=== PATIENT | female | born 1930 | race Caucasian/White ===

== ENCOUNTER 2017-05-13 07:14 | Observation (INO) ==
[2017-05-13] MEDS ORDERED: Ondansetron 4 MG/2 ML VIAL IVP ONE ×3 (07:35→15:51)
[2017-05-13] MEDS ORDERED: *HR* FentaNYL (PF) 100 MCG/2 ML VIAL IVP ONE ×2 (07:35→08:54)
--- NOTE | 2017-05-13 07:35 | Emergency Department Note ---
Disposition Clinical Impression: Cholelithiasis Qualifiers: Cholelithiasis location: gallbladder and bile duct Cholecystitis presence: without cholecystitis Biliary obstruction: without biliary obstruction Qualified Code(s): K80.70 - Calculus of gallbladder and bile duct without cholecystitis without obstruction Nausea & vomiting Qualifiers: Vomiting type: unspecified Vomiting Intractability: unspecified Qualified Code( s): R11.2 - Nausea with vomiting, unspecified Disposition: Admitted As Inpatient Condition: Fair Referrals: Celestino Phipps MD [Primary Care Provider] - Forms: ED Satisfaction Letter, Work/School Release Time of Disposition: 09:04 Abdominal Pain HPI - General Chief Complaint: ED Abdominal Pain Stated Complaint: back/abd pain Time Seen by Provider: 05/13/17 07:19 Source: patient Mode of arrival: ambulatory Limitations: no limitations Nursing Notes Reviewed: Yes Vital Signs Reviewed: Yes - History of Present Illness HPI Narrative: 86-year-old female who comes in complaining of generalized abdominal pain. Says she had about 15 years ago and does not remember exactly what caused it. Says she had a history of A. fib but does not think she is in A. fib now. She is not on a blood thinner. She did have a CT scan of her abdomen in 2016 to did show gallstone also showed diverticular disease no mention of any vascular issues. Pt Subjective Complaint: abdominal pain Onset (ago): Just SE[employer] Consistency: constant Location: diffuse Pain Scale: 9 Quality: aching Radiation: none Migration to: no migration Improves with: nothing Worsens with: movement Associated symptoms: Reports: denies other symptoms Treatments prior to arrival: none - Related Data Home Medications Medication Instructions Recorded Confirmed Ergocalciferol (VITAMIN D2) 50,000 unit PO TAYLOR 02/19/17 02/19/17 [Vitamin D2] Ferrous Gluconate [Ferrous 325 mg PO Q48H 02/19/17 02/19/17 Gluconate] Labetalol HCl [Labetalol HCl] 300 mg PO BID 02/19/17 02/19/17 Ropinirole HCl [Requip] 2 mg PO BID 02/19/17 02/19/17 Verapamil [Isoptin] 120 mg PO BID 02/19/17 02/19/17 Previous Rx's Medication Instructions Recorded HYDROcodone/Acet 5/325 mg [[place] 1 tab PO Q6H PRN #16 tab 02/19/17 5-325 mg] Ondansetron ODT [Zofran ODT] 4 mg SL Q8HR PRN #20 tab.rapdis 02/19/17 Allergies Allergy/AdvReac Type Severity Reaction Status Date / Time ciprofloxacin [From Cipro] Allergy Rash Verified 02/19/17 07:58 Penicillins Allergy Rash Verified 02/19/17 07:58 All systems ED: reviewed and negative except as stated. Constitutional: Denies: fever, chills, weakness, weight change Eyes: Denies: eye pain, eye discharge, vision change ENT ED: Denies: ear pain, throat pain, dental pain, hearing loss, epistaxis, congestion, dysphagia Cardiovascular: Denies: chest pain, palpitations, dyspnea on exertion, edema, syncope Respiratory: Denies: cough, dyspnea, wheezes, hemoptysis, stridor Gastrointestinal: Reports: abdominal pain. Denies: nausea, vomiting, diarrhea, constipation, hematemesis, melena, hematochezia Genitourinary: Denies: dysuria, frequency, hematuria, discharge Musculoskeletal: Denies: back pain, neck pain, arthralgia, myalgia Integumentary: Denies: rash, abrasion, lesions Neurological: Denies: headache, weakness, numbness, paresthesias, confusion, abnormal gait, vertigo Psychiatric: Denies: anxiety, depression, suicidal thoughts, homicidal thoughts , auditory hallucinations, visual hallucinations Endocrine: Denies: fatigue Hematological/Lymphatic: Denies: easy bleeding, easy bruising Allergic/Immunologic: Denies: facial swelling, urticaria Abdominal Pain PMH - Past Medical History Medical history: Reports: arthritis, hyperlipidemia, hypertension, renal disease Female Surgical History: Reports: appendectomy, hip replacement, knee replacement, orthopedic, other Psychiatric history: Reports: no psych history - Social History Smoking status: Former smoker Alcohol use: Reports: occasionally Drug use: Reports: none Physical Exam - General Limitations: no limitations General appearance: alert, in no apparent distress - Head Head exam: atraumatic, normocephalic, normal inspection - Eye Eye exam: Present: normal appearance, PERRL, EOMI - ENT ENT exam: normal exam, normal oropharynx, mucous membranes moist - Neck Neck exam: Present: normal inspection, full ROM, trachea midline - Chest Chest inspection: Present: normal inspection, symmetric chest wall rise - Respiratory Respiratory exam: Present: normal lung sounds bilaterally - Cardiovascular Cardiovascular exam: Present: regular rate, normal rhythm, normal heart sounds - Abdominal Exam Abdominal exam: Present: soft, tenderness, Rees's sign Abdominal tenderness: Present: RUQ - Extremities Exam Extremities exam: Present: normal inspection, full ROM. Absent: tenderness, pedal edema - Expanded Lower Extremity Exam Neurovascular/Tendon exam: Absent: motor deficit, sensory deficit, tendon deficit Gait: observed and normal - Back Exam Back exam: Present: normal inspection, full ROM. Absent: tenderness - Neurological Exam Neurological exam: Present: alert, oriented X3 - Psychiatric Psychiatric exam: Present: normal affect, normal mood - Skin Skin exam: Present: warm, dry, intact, normal color Course - Reevaluation(s) Reevaluation #1: 86-year-old with the abdominal pain localizes right upper quadrant CT scan shows a gall stone impacted in the neck of the gallbladder. Patient continues to have vomiting and pain will be admitted for further evaluation and treatment. Time: 09:03 - Consultations Consultation #1: Discussed with , admit. Time: 09:02 Vital Signs Temperature 97.5 F L 05/13/17 07:16 Pulse Rate 55 05/13/17 07:16 Respiratory Rate 18 05/13/17 07:16 Blood Pressure 168/91 05/13/17 07:16 O2 Sat by Pulse Oximetry 99 05/13/17 07:16 Temperature 97.5 F L 05/13/17 07:16 Pulse Rate 56 05/13/17 08:51 Respiratory Rate 13 05/13/17 08:51 Blood Pressure 184/93 05/13/17 08:51 O2 Sat by Pulse Oximetry 98 05/13/17 08:51 Oxygen Delivery Oxygen Delivery Room Air Abdominal Pain - Lab Data Result diagrams: 05/13/17 07:24 05/13/17 07:24 Lab Results 05/13/17 05/13/17 05/13/17 Range/Units 07:24 07:24 07:24 WBC 8.7 (4.3-11.1) K/mcL RBC 4.22 (3.82-4.97) M/mcL Hgb 12.3 (11.5-15.4) g/dL Hct 38.5 (35.3-44.9) % MCV 91.2 (83.0-100.0) fL MCH 29.1 (28.0-33.3) pg MCHC 31.9 (31.6-35.5) g/dL RDW 13.7 (11.5-14.5) % Plt Count 186 (140-400) K/mcL MPV 11.1 (9.4-12.4) fL Immature Gran % 0.3 (0-4) % Seg Neutrophils % 74.6 % Lymphocytes % 14.9 % Monocytes % 6.6 % Eosinophils % 2.6 % Basophils % 1.0 % Neutrophils # 6.5 (1.6-8.9) K/mcL Lymphocytes # 1.3 (0.6-4.6) K/mcL Monocytes # 0.6 (0.0-1.3) K/mcL Eosinophils # 0.2 (0.0-0.6) K/mcL Basophils # 0.1 (0.0-0.2) K/mcL PT 10.6 (9.4-12.1) Seconds INR 1.0 APTT 22.6 L (26.0-36.0) Seconds Sodium 134 L (136-145) mEq/L Potassium 4.4 (3.5-5.1) mEq/L Chloride 101 (98-107) mEq/L Carbon Dioxide 26 (23-29) mEq/L BUN 22 (8-23) mg/dL Creatinine 1.35 H (0.60-1.20) mg/dL Est GFR ( Amer) 45 L (> 60) Est GFR (Non-Af Amer) 37 L (> 60) BUN/Creatinine Ratio 16 (6-26) Glucose 155 H (70-105) mg/dL Calculated Osmolality 284 (280-300) Lactic Acid (0.5-2.2) mmol/L Calcium 10.0 (8.6-10.3) mg/dL Total Bilirubin 0.4 (0.3-1.0) mg/dL Direct Bilirubin 0.1 (0.0-0.2) mg/dL Indirect Bilirubin 0.3 (0.0-1.2) mg/dL AST 17 (13-39) Units/L ALT 16 (7-52) Units/L Alkaline Phosphatase 73 (34-104) Units/L Troponin I < 0.03 (< 0.04) ng/mL Serum Total Protein 7.1 (6.4-8.9) g/dL Albumin 4.5 (3.5-5.7) g/dL Globulin 2.6 (2.4-3.5) g/dL Albumin/Globulin Ratio 1.7 (1.1-2.2) Amylase 24 L (29-103) Units/L Lipase 9 L (11-82) Units/L Urine Color (Yellow) Urine Clarity (Clear) Urine pH (5.0-8.0) pH Units Ur Specific [place] (1.010-1.025) Urine Protein (Neg-Trace) mg/dL Urine Glucose (UA) (Normal) mg/dL Urine Ketones (Negative) mg/dL Urine Blood (Negative) Urine Nitrite (Negative) Urine Bilirubin (Negative) Urine Urobilinogen (Normal) mg/dL Ur Leukocyte Esterase (Negative) Ur Culture Indicated? (NO) 05/13/17 05/13/17 Range/Units 07:33 07:41 WBC (4.3-11.1) K/mcL RBC (3.82-4.97) M/mcL Hgb (11.5-15.4) g/dL Hct (35.3-44.9) % MCV (83.0-100.0) fL MCH (28.0-33.3) pg MCHC (31.6-35.5) g/dL RDW (11.5-14.5) % Plt Count (140-400) K/mcL MPV (9.4-12.4) fL Immature Gran % (0-4) % Seg Neutrophils % % Lymphocytes % % Monocytes % % Eosinophils % % Basophils % % Neutrophils # (1.6-8.9) K/mcL Lymphocytes # (0.6-4.6) K/mcL Monocytes # (0.0-1.3) K/mcL Eosinophils # (0.0-0.6) K/mcL Basophils # (0.0-0.2) K/mcL PT (9.4-12.1) Seconds INR APTT (26.0-36.0) Seconds Sodium (136-145) mEq/L Potassium (3.5-5.1) mEq/L Chloride (98-107) mEq/L Carbon Dioxide (23-29) mEq/L BUN (8-23) mg/dL Creatinine (0.60-1.20) mg/dL Est GFR ( Amer) (> 60) Est GFR (Non-Af Amer) (> 60) BUN/Creatinine Ratio (6-26) Glucose (70-105) mg/dL Calculated Osmolality (280-300) Lactic Acid 1.2 (0.5-2.2) mmol/L Calcium (8.6-10.3) mg/dL Total Bilirubin (0.3-1.0) mg/dL Direct Bilirubin (0.0-0.2) mg/dL Indirect Bilirubin (0.0-1.2) mg/dL AST (13-39) Units/L ALT (7-52) Units/L Alkaline Phosphatase (34-104) Units/L Troponin I (< 0.04) ng/mL Serum Total Protein (6.4-8.9) g/dL Albumin (3.5-5.7) g/dL Globulin (2.4-3.5) g/dL Albumin/Globulin Ratio (1.1-2.2) Amylase (29-103) Units/L Lipase (11-82) Units/L Urine Color Yellow (Yellow) Urine Clarity Clear (Clear) Urine pH 7.5 (5.0-8.0) pH Units Ur Specific [place] 1.017 (1.010-1.025) Urine Protein Negative (Neg-Trace) mg/dL Urine Glucose (UA) Normal (Normal) mg/dL Urine Ketones Negative (Negative) mg/dL Urine Blood Negative (Negative) Urine Nitrite Negative (Negative) Urine Bilirubin Negative (Negative) Urine Urobilinogen Normal (Normal) mg/dL Ur Leukocyte Esterase Negative (Negative) Ur Culture Indicated? NO (NO) - EKG Data EKG attestation: Yes I reviewed and interpreted this EKG. EKG shows normal: sinus rhythm Rate: bradycardia Rhythm: NSR Interpretation: no acute changes
[2017-05-13 08:14] LABS: Troponin I < 0.03 ng/mL (< 0.04)
[2017-05-13 08:15] LABS: Prothrombin Time 10.6 Seconds (9.4-12.1)
[2017-05-13 08:17] LABS: Activated Partial Thrombo Time 22.6 Seconds (26.0-36.0)
[2017-05-13 08:18] LABS: Alanine Aminotransferase 16 Units/L (7-52); Albumin 4.5 g/dL (3.5-5.7); Albumin/Globulin Ratio 1.7 (1.1-2.2); Alkaline Phosphatase 73 Units/L (34-104); Amylase 24 Units/L (29-103); Aspartate Amino Transferase 17 Units/L (13-39); BUN/Creatinine Ratio 16 (6-26); Bilirubin,Direct 0.1 mg/dL (0.0-0.2); Bilirubin,Indirect 0.3 mg/dL (0.0-1.2); Bilirubin,Total 0.4 mg/dL (0.3-1.0); Blood Urea Nitrogen 22 mg/dL (8-23); Carbon Dioxide 26 mEq/L (23-29); Chloride 101 mEq/L (98-107); Globulin 2.6 g/dL (2.4-3.5); Glucose 155 mg/dL (70-105); Lipase 9 Units/L (11-82); Osmolality,Calculated 284 (280-300); Potassium 4.4 mEq/L (3.5-5.1); Sodium 134 mEq/L (136-145); Total Protein 7.1 g/dL (6.4-8.9); eGFR For African Americans 45 (> 60); eGFR For Non-African Americans 37 (> 60)
[2017-05-13 08:27] LABS: Basophils # 0.1 K/mcL (0.0-0.2); Eosinophils # 0.2 K/mcL (0.0-0.6); Eosinophils % 2.6 %; Hematocrit 38.5 % (35.3-44.9); Hemoglobin 12.3 g/dL (11.5-15.4); Immature Granulocytes % 0.3 % (0-4); Lymphocytes # 1.3 K/mcL (0.6-4.6); Lymphocytes % 14.9 %; Mean Corpuscular HGB Conc 31.9 g/dL (31.6-35.5); Mean Corpuscular Hemoglobin 29.1 pg (28.0-33.3); Mean Corpuscular Volume 91.2 fL (83.0-100.0); Mean Platelet Volume 11.1 fL (9.4-12.4); Monocytes # 0.6 K/mcL (0.0-1.3); Monocytes % 6.6 %; Neutrophils # 6.5 K/mcL (1.6-8.9); Platelet Count 186 K/mcL (140-400); Red Blood Count 4.22 M/mcL (3.82-4.97); Red Cell Distribution Width 13.7 % (11.5-14.5); Segmented Neutrophils % 74.6 %
[2017-05-13 08:46] LABS: Bilirubin,Urine Negative (Negative); Blood,Urine Negative (Negative); Clarity,Urine Clear (Clear); Color,Urine Yellow (Yellow); Glucose,Urine (UA) Normal (Normal); Ketones,Urine Negative (Negative); Leukocyte Esterase,Urine Negative (Negative); Nitrite,Urine Negative (Negative); PH,Urine 7.5 pH Units (5.0-8.0); Protein,Urine Negative (Neg-Trace); Specific Gravity,Urine 1.017 (1.010-1.025); Urobilinogen,Urine Normal (Normal)
[2017-05-13] MEDS ORDERED: Ondansetron 4 MG/2 ML VIAL IVP PRN ×2 (09:23→17:31)
[2017-05-13] MEDS ORDERED: *HR* Metoprolol 5 MG/5 ML VIAL IVP PRN ×2 (09:23→17:31)
[2017-05-13] MEDS ORDERED: Naloxone 0.4 MG/ML INJ IVP PRN ×2 (09:23→17:31)
[2017-05-13] MEDS ORDERED: Morphine Oral CONC 5 MG/0.25 ML ORAL.SYG PO PRN (09:30)
[2017-05-13] MEDS ORDERED: OXYCODONE Oral CONC 10 MG/0.5 ML ORAL.SYG SL PRN ×2 (09:30→17:31)
[2017-05-13] MEDS ORDERED: 0.9 % Sodium Chloride 1,000 ML IVC SCH (09:30)
[2017-05-13] MEDS ORDERED: Acetaminophen 325 MG TABLET PO PRN ×2 (09:30→17:31)
--- NOTE | 2017-05-13 10:47 | General Surg History&Physical ---
<Silverio Norris - Last Filed: 05/13/17 10:39> Date of Encounter: 05/13/17 Time of Encounter: 10:40 Assessment and Plan (1) Cholelithiasis Current Visit: Yes Status: Acute The assessment and plan as outlined above was discussed with the patient and/or family members who expressed understanding and agreement. All questions were answered. Labs are unremarkable with no leukocytosis and with normal LFTs. Elevated creatinine at 1.35, but appears to be at the patient's baseline. CT of abdomen and pelvis 05/13/17 and right upper quadrant ultrasound - shows distended gallbladder with a 6 mm gallstone in the gallbladder neck. No pericholecystic edema is present. No evidence of intrahepatic or common bile duct dilation. No acute cholecystitis at this time. Patient is afebrile and appears in no acute distress. Plan: NPO at this time IV zofran PRN for nausea and vomiting IVF supportive care and pain control. Surgical intervention within 24 to 48 hours. Patient will be an add on for laparoscopic cholecystectomy by Dr. Valero. Qualifiers: Cholelithiasis location: gallbladder and bile duct Cholecystitis presence: without cholecystitis Biliary obstruction: without biliary obstruction Qualified Code(s): K80.70 - Calculus of gallbladder and bile duct without cholecystitis without obstruction History of Present Illness Chief complaint: Abdominal pain HPI: Ms. Vu is a 86 year old female with a past medical history of CKD stage 3, afib not on any anticoagulation, and a history of gallstones in 2016 who presented to the emergency department complaining of epigastric and right upper quadrant pain that started at 5 AM this morning. The patient states that the pain occurred while she was asleep. She describes the pain as constant, sharp, and radiated to her back. She admits associated nausea and vomiting with the pain. She states that moving around makes the pain worse and nothing makes it better. Surgical history includes umbilical hernia repair approximately 10 years ago and appendectomy at the age of 15 y/o. Patient sates that her last bowel movement was this morning without any blood. The patient denies any fever , jaundice, changes in bowel movements, urinary symptoms, chest pain, shortness of breath, difficulty breathing, and any weaknesses. The patient has no other concerns at this time. Past Med Surg Social Fam HX - Past Medical History Medical history: arthritis, hyperlipidemia, hypertension, renal disease Psychiatric history: no psych history - Social History Smoking Status: Former smoker Smokeless Tobacco Status: No Alcohol use: occasionally Drug use: none Medications and Allergies Ergocalciferol (VITAMIN D2) [Vitamin D2] 50,000 unit PO TAYLOR 02/19/17 [History] Ferrous Gluconate [Ferrous Gluconate] 325 mg PO DAILY 02/19/17 [History] Labetalol HCl [Labetalol HCl] 300 mg PO BID 02/19/17 [History] Ropinirole HCl [Requip] 2 mg PO BID 02/19/17 [History] Verapamil [Isoptin] 120 mg PO BID 02/19/17 [History] 3 Allergy/AdvReac Type Severity Reaction Status Date / Time ciprofloxacin [From Cipro] Allergy Rash Verified 05/13/17 09:12 Penicillins Allergy Rash Verified 05/13/17 09:12 Review of Systems All systems PM: The remainder of the systems were reviewed and are negative - Constitutional as per HPI General Surgery Exam Initial Vital Signs Temp Pulse Resp BP Pulse Ox 97.5 F L 55 18 168/91 99 05/13/17 07:16 05/13/17 07:16 05/13/17 07:16 05/13/17 07:16 05/13/17 07:16 - General physical appearance well developed, well nourished, no distress, obese - Eyes PERRL, normal ocular movement - ENT normal mucosa - Neck trachea midline - Respiratory normal expansion, normal respiratory effort - Cardiovascular Cardiovascular exam: Present: RRR, no murmurs/rubs/gallops - Abdomen Abdomen general surgery: Present: bowel sounds present, soft, tender (Tender to palpation in the right upper quadrant and epigastric region. Positive Rees's sign. Negative Rovsing's sign. No tenderness at the McBurney's point), surgical scars (Well healed near her umbilicus, from previous hernia repair). Absent: guarding, rebound, rigid Abdominal Tenderness: Present: epigastic, RUQ Hernia: Present: none - Integumentary Integumentary general surgery: Present: warm and dry, no abnormal pigmentation - Neurologic Present: CN 2-12 grossly intact - Psychiatric Psychiatric general surgery: Present: appropriate, oriented to person, oriented to place, oriented to time Results - Labs 05/13/17 07:24 05/13/17 07:24 Abnormal lab results APTT 22.6 Seconds (26.0-36.0) L 05/13/17 07:24 Sodium 134 mEq/L (136-145) L 05/13/17 07:24 Creatinine 1.35 mg/dL (0.60-1.20) H 05/13/17 07:24 Est GFR ( Amer) 45 (> 60) L 05/13/17 07:24 Est GFR (Non-Af Amer) 37 (> 60) L 05/13/17 07:24 Glucose 155 mg/dL (70-105) H 05/13/17 07:24 Amylase 24 Units/L (29-103) L 05/13/17 07:24 Lipase 9 Units/L (11-82) L 05/13/17 07:24 All other labs normal. <Osei Valero - Last Filed: 05/13/17 13:07> Date of Encounter: 05/13/17 History of Present Illness HPI: Ms. Vu is a 86 year old female Review of Systems All systems PM: The remainder of the systems were reviewed and are negative General Surgery Exam Initial Vital Signs Temp Pulse Resp BP Pulse Ox 97.5 F L 55 18 168/91 99 05/13/17 07:16 05/13/17 07:16 05/13/17 07:16 05/13/17 07:16 05/13/17 07:16 Results - Labs 05/13/17 07:24 05/13/17 07:24 Abnormal lab results APTT 22.6 Seconds (26.0-36.0) L 05/13/17 07:24 Sodium 134 mEq/L (136-145) L 05/13/17 07:24 Creatinine 1.35 mg/dL (0.60-1.20) H 05/13/17 07:24 Est GFR ( Amer) 45 (> 60) L 05/13/17 07:24 Est GFR (Non-Af Amer) 37 (> 60) L 05/13/17 07:24 Glucose 155 mg/dL (70-105) H 05/13/17 07:24 Amylase 24 Units/L (29-103) L 05/13/17 07:24 Lipase 9 Units/L (11-82) L 05/13/17 07:24 All other labs normal. - Attending Attestation I examined this patient and my medical decision-making was reviewed with the Resident Physician. I agree with the documented findings, disposition and treatment plan as described except to the extent set forth below. The patient is seen and evaluated with the resident and discussed with the clinical nurse practitioner. Findings are consistent with cholelithiasis and gallbladder obstruction. She will benefit from laparoscopic cholecystectomy. We will schedule this on an urgent basis later today. I discussed the risks and benefits of laparoscopic cholecystectomy and the performance of cholangiogram. She understands this and wishes to proceed. Osei Valero MD FACS
[2017-05-13] MEDS ORDERED: Bisacodyl 10 MG RECTAL SUPPOSITORY RC PRN ×2 (12:22→17:31)
[2017-05-13] MEDS ORDERED: Isovue-300 50 ML VIAL IVP ONE (14:14)
[2017-05-13] MEDS ORDERED: *HR* Propofol 200 MG/20 ML VIAL IVP ONE (14:48)
[2017-05-13] MEDS ORDERED: *HR* FentaNYL (PF) 100 MCG/2 ML VIAL ONE (14:48)
[2017-05-13] MEDS ORDERED: Dexamethasone 4 MG/ML VIAL ONE (14:49)
[2017-05-13] MEDS ORDERED: *HR* Rocuronium Bromide 50 MG/5 ML VIAL ONE (14:49)
[2017-05-13] MEDS ORDERED: Ondansetron 4 MG/2 ML VIAL ONE (14:49)
[2017-05-13] MEDS ORDERED: Lidocaine -MPF 2% 2 ML VIAL ONE (14:49)
[2017-05-13] MEDS ORDERED: Neostigmine Methylsulfate 3 MG/3 ML SYRINGE ONE (14:52)
[2017-05-13] MEDS ORDERED: CefOXitin 2,000 MG VIAL ONE (14:59)
[2017-05-13] MEDS ORDERED: cefOXitin 1,000 MG, 0.9 % Sodium Chloride 1,000 ML IR ONE (15:00)
--- NOTE | 2017-05-13 15:00 | Anesthesia Evaluation PreOp ---
Date of Encounter: 05/13/17 Time of Encounter: 15:00 - Past History Planned Operation: Lap Cholecystectomy Cardiac History: HTN, Hyperlipidemia, Arrhythmia (Hx Paroxysmal AFib) Pulmonary History: VITALIY Dx (non compliant with CPAP) TRANSPORTATION INSPECTOR History: Denies Any Significant HX Other Medical History: Renal (CKD with elevated creatinine), Other (Obese) Anesthesia History: No Prior Anesthetic Complications : No Alcohol Use: occasionally Drug use: none Medications and Allergies Ergocalciferol (VITAMIN D2) [Vitamin D2] 50,000 unit PO TAYLOR 02/19/17 [History] Ferrous Gluconate [Ferrous Gluconate] 325 mg PO DAILY 02/19/17 [History] Labetalol HCl [Labetalol HCl] 300 mg PO BID 02/19/17 [History] Ropinirole HCl [Requip] 2 mg PO BID 02/19/17 [History] Verapamil [Isoptin] 120 mg PO BID 02/19/17 [History] 3 Allergy/AdvReac Type Severity Reaction Status Date / Time ciprofloxacin [From Cipro] Allergy Rash Verified 05/13/17 09:12 Penicillins Allergy Rash Verified 05/13/17 09:12 - Meds/Allergy Pre-op Review Medications Reviewed: Yes Allergies Reviewed: Yes Beta Blockers on Current Med List: Yes (Metoprolol today 09) Anesthesia Results - Labs 05/13/17 07:24 05/13/17 07:24 - Imaging EKG: report reviewed (SR) Anesthesia Exam O2 Sat Height 1.63 m Weight 102.058 kg O2 Sat by Pulse Oximetry 97 O2 Sat by Pulse Oximetry 94 O2 Sat by Pulse Oximetry 96 O2 Sat by Pulse Oximetry 98 O2 Sat by Pulse Oximetry 97 O2 Sat by Pulse Oximetry 99 Vital Signs Temp Pulse Resp BP Pulse Ox 97.5 F L 55 18 168/91 99 05/13/17 07:16 05/13/17 07:16 05/13/17 07:16 05/13/17 07:16 05/13/17 07:16 Height: 5'4 Weight: 225 lbs NPO (# of Hours): MN Pain Scale: 0 - HEENT Pupil (Motor): Pupils equal, EOMI Mallampati: III Teeth: Missing Oral Opening: Less than or equal to 3 - TRANSPORTATION INSPECTOR LOC: Oriented TRANSPORTATION INSPECTOR Motor: Normal RUE, Normal LUE, Normal RLE, Normal LLE, Normal Face TRANSPORTATION INSPECTOR Sensory: Normal: RUE, LUE, RLE, LLE, Face - Cardiac Rhythm: Regular Murmur: None JVD: No Carotid Bruit: No - Pulmonary Breath Sounds: bilateral Clear Respiratory Effort: Symmetrical Anesthesia Assess/Plan ASA Score: 3 (HTN VITALIY CKD) Modified [place] Scale for Level of Consciousness: Cooperative, oriented, and tranquil Anesthetic Plan: General Monitoring Plan: Standard Monitors Recovery Plan: PACU (Discussed GA, agrees to proceed)
[2017-05-13] MEDS ORDERED: Clindamycin 900 MG/50 ML 900 MG/50 ML IV.SOLN IVPB ONE (15:01)
[2017-05-13] MEDS ORDERED: Acetaminophen IV 1,000 MG/100 ML INFUS..BTL ONE (15:12)
[2017-05-13] MEDS ORDERED: *HR* Succinylcholine 200 MG/10 ML VIAL IVP ONE (15:20)
[2017-05-13] MEDS ORDERED: *HR* PHENYLEPHRINE 1,000 MCG/10 ML SYRINGE IVP ONE (15:45)
[2017-05-13] MEDS ORDERED: Dexamethasone 4 MG/ML VIAL IVP ONE (15:51)
[2017-05-13] MEDS ORDERED: *HR* Morphine 2 MG/ML SYRINGE IVP PRN (15:51)
[2017-05-13] MEDS ORDERED: *HR* Labetalol 20 MG/4 ML SYRINGE IVP PRN (15:51)
[2017-05-13] MEDS ORDERED: *HR* Morphine 10 MG/ML VIAL ONE (15:53)
[2017-05-13] MEDS ORDERED: cefOXitin 2,000 MG in Water for inj. (sterile) 20 ML 10 ML IVP SCH (16:00)
--- NOTE | 2017-05-13 16:20 | Operative Note ---
Date of procedure: 05/13/17 Pre-op diagnosis: Cholelithiasis Post-op diagnosis: other (Acute hemorrhagic gallbladder necrosis and cholelithiasis) Procedure: Laparoscopic cholecystectomy, cholangiogram Anesthesia: GETA Surgeon: Osei Valero Was there an mental health assistant present: Yes Branch Officer: Joanne England Estimated blood loss (cc): 20 Specimen: Gallbladder and contents Condition: stable Disposition: PACU Procedure in Detail: Laparoscopic cholecystectomy and intraoperative cholangiogram Operative procedure after informed consent and appropriate patient identification timeout the patient was taken to the major operating suite and placed supine position given adequate general endotracheal anesthesia the abdomen is prepped and draped in sterile fashion utilizing ChloraPrep standard draping techniques timeout was taken patient is identified. I made a vertical midline incision below the umbilicus dissected down to level of fascia there are 2 traction stitches placed in the abdominal cavity was entered visually. A Garcia trocar was placed in the abdomen and the abdomen was insufflated to 15 mmHg pressure CO2 the gallbladder was visualized. A placement 11 port in the subxiphoid area and 2 5 mm ports in the subcostal area. The gallbladder demonstrated acute hemorrhagic necrosis. The gallbladder was decompressed with a decompression needle. Quite clear bile was aspirated indicating chronic obstruction. The gallbladder was grasped and elevated. A variety of blunt and sharp dissection techniques were used to isolate the cystic duct and cystic artery. The cystic artery was controlled with 2 surgical clips proximally and one distally and it was divided I placed a surgical clip on the neck the gallbladder and obtained an intraoperative cholangiogram using 10 mL of Isovue. Intraoperative cholangiogram was normal. The cholangiocatheter was removed and the cystic duct was controlled with 2 surgical clips proximally and was divided the gallbladder was removed from the gallbladder fossae using electrocautery. The gallbladder was removed through the #11 port site using a specimen bag. I replaced the #11 port and irrigated with copious amounts of antibiotic containing solution. There is no evidence of bleeding or bile leak. All trochars were removed. Fascia was closed with 0 Vicryl skin with 2-0 and 4-0 Vicryl he tolerated the procedure well and was transferred to recovery in stable condition
--- NOTE | 2017-05-13 16:58 | Anesthesia Evaluation Post Op ---
Date of Encounter: 05/13/17 Time of Encounter: 17:00 - Vital Signs Vital Signs: Selected Entries 05/13/17 16:24 05/13/17 16:44 Temperature 97.0 F L Pulse Rate 65 Respiratory Rate 16 Blood Pressure 141/73 O2 Sat by Pulse Oximetry 99 - Lungs Lungs: Clear Ascult./Percussion - Airway Airway: Non-obstructed - Cardiovascular Regular Rate - Mental Status Mental Status: Alert & Oriented, Answers Appropriately - Nausea Vomiting Nausea Vomiting: Not Present - Hydration Hydration: Tolerates oral liquids - Discharge PostOp Status: Transfer Patient to floor
[2017-05-13] MEDS ORDERED: MORPHINE SUL Oral CONC 10 MG/0.5 ML ORAL.SYG PO PRN (17:31)
[2017-05-13] MEDS: rOPINIRole 1 MG TABLET PO SCH (21:40)
[2017-05-13] MEDS: cefOXitin 2,000 MG in Water for inj. (sterile) 20 ML 10 ML IVP SCH (23:22)
[2017-05-14 07:35] VITALS: BP 95/55
[2017-05-14] MEDS: 0.9 % Sodium Chloride 1,000 ML IVC SCH ×2 (07:52→09:34)
--- NOTE | 2017-05-14 08:02 | Electrocardiograph Report ---
[address] [place] [id number] Test Date: 2017-05-13 Pat Name: Shannon Vu Department: 103 Room: 3A41 Gender: F Manufacturing Industrial Engineer: HENOK : 1930 Requested By: Dutch Christine Order Number: [id number] Reading MD: Daniel Espinoza MD Measurements Intervals [place] Rate: 55 P: [place]: 0 QRS: 27 QRSD: 117 T: 52 QT: 485 QTc: 473 Interpretive Statements SINUS BRADYCARDIA INFERIOR MYOCARDIAL INFARCTION, PROBABLY OLD Electronically Signed On 05-14-2017 8:00:18 EDT by Daniel Espinoza MD
[2017-05-14] MEDS: rOPINIRole 1 MG TABLET PO SCH (08:30)
--- NOTE | 2017-05-14 08:42 | Discharge Summary ---
Addendum entered and electronically signed by Silverio Norris DO 05/14/17 10:08: Original Note: <Silverio Norris - Last Filed: 05/14/17 08:39> Orders not resulted at time of discharge: Pending orders 05/13/17 16:03 Surgical Pathology [PTH] Routine Date of Encounter: 05/14/17 Time of Encounter: 07:10 - Discharge Diagnosis (1) Status post laparoscopic cholecystectomy Priority: Primary Status: Acute (2) Cholelithiasis Priority: Primary Status: Acute Qualifiers: Cholelithiasis location: gallbladder and bile duct Cholecystitis presence: without cholecystitis Biliary obstruction: without biliary obstruction Qualified Code(s): K80.70 - Calculus of gallbladder and bile duct without cholecystitis without obstruction General Surgery Exam Initial Vital Signs Temp Pulse Resp BP Pulse Ox 97.5 F L 55 18 168/91 99 05/13/17 07:16 05/13/17 07:16 05/13/17 07:16 05/13/17 07:16 05/13/17 07:16 - General physical appearance well developed, well nourished, no distress - Eyes PERRL, normal ocular movement - ENT normal mucosa - Neck trachea midline - Respiratory normal expansion, normal respiratory effort, clear to auscultation - Cardiovascular Cardiovascular exam: Present: RRR, no murmurs/rubs/gallops - Abdomen Abdomen general surgery: Present: bowel sounds present, soft, tender (Mild tenderness near her surgical incisions. Expected and appropriate post operative tenderness.). Absent: distended, guarding, rebound - Incision Incision: Present: clean and dry, intact. Absent: draining, purulent - Integumentary Integumentary general surgery: Present: warm and dry, no abnormal pigmentation - Neurologic Present: CN 2-12 grossly intact - Psychiatric Psychiatric general surgery: Present: appropriate, oriented to person, oriented to place, oriented to time, speech is normal - Hospital Course Hospital course: Ms. Vu is a 86 year old female with a past medical history of CKD stage 3, afib not on any anticoagulation, and a history of gallstones in 2016 who presented to the emergency department complaining of epigastric and right upper quadrant pain that started at 5 AM this morning. The patient states that the pain occurred while she was asleep. She describes the pain as constant, sharp, and radiated to her back. She admits associated nausea and vomiting with the pain. She states that moving around makes the pain worse and nothing makes it better. Surgical history includes umbilical hernia repair approximately 10 years ago and appendectomy at the age of 15 y/o. Patient sates that her last bowel movement was the morning before arrival to ED and stools were without any blood. Patient had a laparoscopic cholecystectomy and intraoperative cholangiogram on 05/13/2017. Per operative note,patient had acute hemorrhagic gallbladder necrosis and cholelithiasis. Intraoperative cholangiogram was normal. Patient tolerated the surgery well. The patient denies any fever, jaundice, changes in bowel movements, urinary symptoms, chest pain, shortness of breath, difficulty breathing, and any weaknesses. The patient was instructed to follow up with her primary care physician within one week. The patient was also instructed to follow-up with the surgery outpatient clinic within 2 weeks. The patient has no other concerns at this time. - Time Spent with Patient Total time spent providing and/or coordinating discharge services: - Discharge Medications Prescriptions: OxyCODONE/APAP 10/325 [Percocet 10/325 MG] 1 each PO Q6HR PRN 6 Days #24 tablet PRN Reason: Pain Ibuprofen [Motrin] 600 mg PO Q8HR PRN #30 tab PRN Reason: Pain Docusate [Colace] 100 mg PO BID PRN #30 capsule PRN Reason: Constipation Home Medications: Ergocalciferol (VITAMIN D2) [Vitamin D2] 50,000 unit PO TAYLOR 02/19/17 [History] Ferrous Gluconate 325 mg PO DAILY 02/19/17 [History] Labetalol HCl 300 mg PO BID 02/19/17 [History] Ropinirole HCl [Requip] 2 mg PO BID 02/19/17 [History] Verapamil [Isoptin] 120 mg PO BID 02/19/17 [History] Docusate [Colace] 100 mg PO BID PRN #30 capsule 05/14/17 [Rx] Ibuprofen [Motrin] 600 mg PO Q8HR PRN #30 tab 05/14/17 [Rx] OxyCODONE/APAP 10/325 [Percocet 10/325 MG] 1 each PO Q6HR PRN 6 Days #24 tablet 05/14/17 [Rx] Allergies/Adverse Reactions: 3 Allergy/AdvReac Type Severity Reaction Status Date / Time ciprofloxacin [From Cipro] Allergy Rash Verified 05/13/17 09:12 Penicillins Allergy Rash Verified 05/13/17 09:12 Date of admission: 05/13/17 09:47 Primary care physician: Celestino Phipps MD Discharging clinician: Silverio Norris - Impressions ITS Impressions Cholangiogram,Operative 05/13/17 15:50 IMPRESSION: Unremarkable intraoperative cholangiogram. Reference can be made to procedure report for additional information. D/ / 05/13/2017 16:31:38 Jose Fuentes MD / Eula Ortega Interpreting Provider: Jose Fuentes MD - Patient Status Disposition: Home, Self-Care Condition: Fair Functional capacity at discharge: independent ambulation Overall status at discharge: patient is progressing back to baseline - Discharge Instructions Instructions: Laparoscopic Cholecystectomy (DC) Follow Up With: Dasha Shafer CNP [Advanced Practice Nurse] - 05/26/17 1:00 pm (Lap. alexandro by Dr. Valero F/U) Additional Instructions: 1. No pushing, pulling, or lifting greater than 15 lbs for 4 weeks (depending upon procedure). 2. You may shower beginning today, but no tub baths, soaking, or swimming for 2 weeks. 3. You may resume driving when you are off narcotics and are safe to react in a car. 4. Take ibuprofen every 8 hours for discomfort. If this does not relieve discomfort, you may take the as needed Percocet. Take narcotics as directed. Do not take more narcotics then directed and do not share your narcotics with any other person. Do not drink alcohol while on narcotics. 5. Take stool softeners (Colace) or a water based laxative (Miralax) while taking narcotics. You may hold for loose stools. 6. Report any fevers greater than 100.5F, increase abdominal discomfort, drainage that looks like pus, increased redness or pain at the surgical site, or any vomiting. 7. Report any pain in the calves, shortness of breath, or rapid heartbeat. 8. Follow-up in the office as directed. 9. If you were prescribed antibiotics, do not stop them without talking to your provider. - Diet and Activity Activity: increase activity as tolerated Diet: advance to your usual diet <Osei Valero - Last Filed: 05/20/17 15:39> Date of Encounter: 05/14/17 General Surgery Exam Initial Vital Signs Temp Pulse Resp BP Pulse Ox 97.5 F L 55 18 168/91 99 05/13/17 07:16 05/13/17 07:16 05/13/17 07:16 05/13/17 07:16 05/13/17 07:16 - Hospital Course Hospital course: Ms. Vu is a 86 year old female - Time Spent with Patient Total time spent providing and/or coordinating discharge services: Date of admission: 05/13/17 09:47 Primary care physician: Celestino Phipps MD - Impressions ITS Impressions Cholangiogram,Operative 05/13/17 15:50 IMPRESSION: Unremarkable intraoperative cholangiogram. Reference can be made to procedure report for additional information. D/ / 05/13/2017 16:31:38 Jose Fuentes MD / Eula Ortega Interpreting Provider: Jose Fuentes MD - Attending Attestation I examined this patient and my medical decision-making was reviewed with the Resident Physician. I agree with the documented findings, disposition and treatment plan as described except to the extent set forth below. The patient is seen and evaluated with rest. She underwent laparoscopic cholecystectomy and is stable and ready for discharge. Osei Valero MD FACS
[2017-05-14 08:55] LABS: Albumin 3.5 g/dL (3.5-5.7); Albumin/Globulin Ratio 1.6 (1.1-2.2); Bilirubin,Direct 0.2 mg/dL (0.0-0.2); Bilirubin,Indirect 0.4 mg/dL (0.0-1.2); Bilirubin,Total 0.6 mg/dL (0.3-1.0); Calcium 9.1 mg/dL (8.6-10.3); Globulin 2.2 g/dL (2.4-3.5); Potassium 4.7 mEq/L (3.5-5.1); Total Protein 5.7 g/dL (6.4-8.9)
[2017-05-14] MEDS ORDERED: *HR* Heparin 5,000 UNIT/ML VIAL SQ ONE ×2 (09:26)
[2017-05-14] MEDS: cefOXitin 2,000 MG in Water for inj. (sterile) 20 ML 10 ML IVP SCH (09:33)
[2017-05-14 09:49] LABS: Basophils % 0.1 %; Hematocrit 35.7 % (35.3-44.9); Hemoglobin 11.3 g/dL (11.5-15.4); Immature Granulocytes % 0.4 % (0-4); Lymphocytes # 0.7 K/mcL (0.6-4.6); Lymphocytes % 5.5 %; Mean Corpuscular HGB Conc 31.7 g/dL (31.6-35.5); Mean Corpuscular Hemoglobin 28.9 pg (28.0-33.3); Mean Corpuscular Volume 91.3 fL (83.0-100.0); Mean Platelet Volume 10.3 fL (9.4-12.4); Monocytes # 0.5 K/mcL (0.0-1.3); Monocytes % 4.1 %; Neutrophils # 11.5 K/mcL (1.6-8.9); Platelet Count 211 K/mcL (140-400); Red Blood Count 3.91 M/mcL (3.82-4.97); Red Cell Distribution Width 13.5 % (11.5-14.5); Segmented Neutrophils % 89.9 %
== END 2017-05-14 11:50 | disposition home or self-care (01) ==
LOC: 3ANU 07:14 → EMEROO 07:14 → 3ANU 11:02
PROVIDERS: ADMIT Surgery; ATTEND Surgery

== ENCOUNTER 2019-12-17 09:25 | Inpatient (IN) ==
[2019-12-17 09:59] LABS: Basophils # 0.1 K/mcL (0.0-0.2); Basophils % 1.5 %; Eosinophils # 0.2 K/mcL (0.0-0.6); Eosinophils % 3.2 %; Hematocrit 35.8 % (35.3-44.9); Hemoglobin 11.2 g/dL (11.5-15.4); Immature Granulocytes % 0.2 % (0-4); Lymphocytes # 0.8 K/mcL (0.6-4.6); Lymphocytes % 16.9 %; Mean Corpuscular HGB Conc 31.3 g/dL (31.6-35.5); Mean Corpuscular Hemoglobin 29.5 pg (28.0-33.3); Mean Corpuscular Volume 94.2 fL (83.0-100.0); Mean Platelet Volume 10.1 fL (9.4-12.4); Monocytes # 0.5 K/mcL (0.0-1.3); Monocytes % 10.6 %; Neutrophils # 3.2 K/mcL (1.6-8.9); Platelet Count 161 K/mcL (140-400); Red Cell Distribution Width 14.8 % (11.5-14.5); Segmented Neutrophils % 67.6 %; White Blood Count 4.7 K/mcL (4.3-11.1)
[2019-12-17 10:04] LABS: INR 1.1; Prothrombin Time 13.1 Seconds (9.4-12.1)
[2019-12-17 10:07] LABS: Activated Partial Thrombo Time 28.6 Seconds (26.0-36.0)
[2019-12-17] MEDS ORDERED: *HR* Metoprolol 5 MG/5 ML VIAL IVP ONE (10:17)
[2019-12-17 10:23] LABS: BUN/Creatinine Ratio 27 (6-26); Blood Urea Nitrogen 32 mg/dL (8-23); Calcium 9.5 mg/dL (8.6-10.3); Carbon Dioxide 26 mEq/L (23-29); Chloride 104 mEq/L (98-107); Glucose 102 mg/dL (70-105); Magnesium 1.9 mg/dL (1.6-2.6); Osmolality,Calculated 289 (280-300); Potassium 4.1 mEq/L (3.5-5.1); Sodium 136 mEq/L (136-145); Troponin I < 0.03 ng/mL (< 0.04); eGFR For African Americans 52 (> 60); eGFR For Non-African Americans 43 (> 60)
[2019-12-17 10:35] LABS: Thyroid Stimulating Hormone 3.166 mcIU/mL (0.340-5.600)
[2019-12-17] MEDS ORDERED: Furosemide 40 MG/4 ML VIAL IVP ONE (10:54)
[2019-12-17] MEDS ORDERED: Acetaminophen 325 MG TABLET PO PRN (12:20)
[2019-12-17] MEDS ORDERED: Ondansetron 4 MG/2 ML VIAL IVP PRN (12:20)
[2019-12-17] MEDS ORDERED: Perflutren Lipid Microsphere 1.3 ML in 0.9 % Sodium Chloride 8.7 ML IVP PRN (12:28)
[2019-12-17] MEDS ORDERED: Furosemide 20 MG/2 ML VIAL IVP ONE (17:00)
[2019-12-17] MEDS ORDERED: Melatonin 3 MG TABLET PO ONE (23:24)
[2019-12-17] MEDS ORDERED: Melatonin 3 MG TABLET PO SCH (23:30)
[2019-12-18 03:59] LABS: Hematocrit 35.9 % (35.3-44.9); Hemoglobin 11.3 g/dL (11.5-15.4); Mean Corpuscular HGB Conc 31.5 g/dL (31.6-35.5); Mean Corpuscular Hemoglobin 28.9 pg (28.0-33.3); Mean Corpuscular Volume 91.8 fL (83.0-100.0); Platelet Count 174 K/mcL (140-400); Red Blood Count 3.91 M/mcL (3.82-4.97); Red Cell Distribution Width 14.9 % (11.5-14.5); White Blood Count 6.5 K/mcL (4.3-11.1)
[2019-12-18 04:15] LABS: BUN/Creatinine Ratio 25 (6-26); Blood Urea Nitrogen 35 mg/dL (8-23); Carbon Dioxide 27 mEq/L (23-29); Chloride 102 mEq/L (98-107); Glucose 102 mg/dL (70-105); Magnesium 1.9 mg/dL (1.6-2.6); Osmolality,Calculated 296 (280-300); Potassium 4.2 mEq/L (3.5-5.1); Sodium 139 mEq/L (136-145); Troponin I < 0.03 ng/mL (< 0.04); eGFR For African Americans 43 (> 60); eGFR For Non-African Americans 36 (> 60)
[2019-12-18] MEDS: *HR* Enoxaparin 30 MG/0.3 ML SYRINGE SQ SCH ×2 (04:18→08:18)
[2019-12-18] MEDS: rOPINIRole 1 MG TABLET PO SCH ×2 (05:33→20:08)
[2019-12-18] MEDS: Aspirin Enteric Coated 81 MG Tablet PO SCH (08:16)
[2019-12-18] MEDS ORDERED: *HR* Metoprolol 5 MG/5 ML VIAL IVP PRN (17:40)
[2019-12-18] MEDS: *HR* Enoxaparin 100 MG/ML SYRINGE SQ SCH (20:08)
[2019-12-18] MEDS: Clotrimazole/Betameth Dip CRM 45 APPL/45 GM TUBE TP SCH (20:08)
[2019-12-19 03:34] LABS: Bilirubin,Urine Negative (Negative); Blood,Urine Negative (Negative); Clarity,Urine Clear (Clear); Color,Urine Yellow (Yellow); Glucose,Urine (UA) Normal (Normal); Ketones,Urine Negative (Negative); Leukocyte Esterase,Urine Small (Negative); Mucus,Urine Few per lpf (None-Few); Nitrite,Urine Negative (Negative); Protein,Urine Trace mg/dL (Neg-Trace); RBC,Urine 0-3 per hpf (0-3); Specific Gravity,Urine 1.024 (1.010-1.025); Squamous Epithelial Cell,Urine Moderate per hpf (None-Few)
[2019-12-19] MEDS ORDERED: Metoprolol XL (24 HR) Succ 25 MG TAB.ER.24H PO SCH ×2 (09:00→21:00)
[2019-12-19 09:25] LABS: Basophils # 0.1 K/mcL (0.0-0.2); Basophils % 1.5 %; Eosinophils # 0.2 K/mcL (0.0-0.6); Eosinophils % 4.3 %; Hematocrit 33.7 % (35.3-44.9); Hemoglobin 10.5 g/dL (11.5-15.4); Lymphocytes # 1.3 K/mcL (0.6-4.6); Lymphocytes % 28.1 %; Mean Corpuscular HGB Conc 31.2 g/dL (31.6-35.5); Mean Corpuscular Hemoglobin 29.1 pg (28.0-33.3); Mean Corpuscular Volume 93.4 fL (83.0-100.0); Mean Platelet Volume 10.4 fL (9.4-12.4); Monocytes # 0.6 K/mcL (0.0-1.3); Monocytes % 13.4 %; Neutrophils # 2.5 K/mcL (1.6-8.9); Platelet Count 166 K/mcL (140-400); Red Blood Count 3.61 M/mcL (3.82-4.97); Segmented Neutrophils % 52.7 %; White Blood Count 4.7 K/mcL (4.3-11.1)
[2019-12-19] MEDS: Clotrimazole/Betameth Dip CRM 45 APPL/45 GM TUBE TP SCH ×2 (09:37→20:21)
[2019-12-19] MEDS: rOPINIRole 1 MG TABLET PO SCH ×2 (09:37→20:20)
[2019-12-19] MEDS: Aspirin Enteric Coated 81 MG Tablet PO SCH (09:37)
[2019-12-19] MEDS ORDERED: Furosemide 40 MG/4 ML VIAL IVP SCH (14:45)
[2019-12-19] MEDS: Metoprolol XL (24 HR) Succ 25 MG TAB.ER.24H PO SCH ×2 (15:33→20:20)
[2019-12-19] MEDS: Furosemide 40 MG/4 ML VIAL IVP ONE ×2 (15:39→19:50)
[2019-12-19] MEDS: *HR* Enoxaparin 100 MG/ML SYRINGE SQ SCH (18:04)
[2019-12-20 06:20] LABS: Basophils # 0.1 K/mcL (0.0-0.2); Basophils % 1.8 %; Eosinophils # 0.3 K/mcL (0.0-0.6); Eosinophils % 6.4 %; Hematocrit 36.9 % (35.3-44.9); Hemoglobin 11.8 g/dL (11.5-15.4); Immature Granulocytes % 0.2 % (0-4); Lymphocytes # 1.4 K/mcL (0.6-4.6); Lymphocytes % 28.4 %; Mean Corpuscular Hemoglobin 29.7 pg (28.0-33.3); Mean Corpuscular Volume 92.9 fL (83.0-100.0); Mean Platelet Volume 10.1 fL (9.4-12.4); Monocytes # 0.7 K/mcL (0.0-1.3); Monocytes % 12.9 %; Neutrophils # 2.5 K/mcL (1.6-8.9); Platelet Count 187 K/mcL (140-400); Red Blood Count 3.97 M/mcL (3.82-4.97); Segmented Neutrophils % 50.3 %
[2019-12-20] MEDS: Metoprolol XL (24 HR) Succ 25 MG TAB.ER.24H PO SCH (06:25)
[2019-12-20 06:39] LABS: Calcium 9.5 mg/dL (8.6-10.3)
[2019-12-20] MEDS: Aspirin Enteric Coated 81 MG Tablet PO SCH (08:33)
[2019-12-20] MEDS: rOPINIRole 1 MG TABLET PO SCH ×2 (08:34→19:54)
[2019-12-20] MEDS: Clotrimazole/Betameth Dip CRM 45 APPL/45 GM TUBE TP SCH ×2 (08:35→22:35)
[2019-12-20] MEDS ORDERED: Metoprolol XL (24 HR) Succ 25 MG TAB.ER.24H PO ONE (12:02)
[2019-12-20] MEDS: Furosemide 20 MG TABLET PO SCH (17:06)
[2019-12-20] MEDS: Metoprolol XL (24 HR) Succ 50 MG TAB.ER.24H PO SCH (19:54)
[2019-12-20] MEDS: Apixaban 5 MG TABLET PO SCH (19:54)
[2019-12-20] MEDS ORDERED: *HR* Metoprolol 5 MG/5 ML VIAL IVP ONE (21:55)
[2019-12-20] MEDS: DilTIAZem 50 MG/50 ML IV.SOLN IVC SCH (22:28)
[2019-12-21 03:43] LABS: Basophils # 0.1 K/mcL (0.0-0.2); Basophils % 1.2 %; Eosinophils # 0.3 K/mcL (0.0-0.6); Eosinophils % 5.3 %; Hemoglobin 11.5 g/dL (11.5-15.4); Immature Granulocytes % 0.2 % (0-4); Lymphocytes # 1.5 K/mcL (0.6-4.6); Lymphocytes % 26.9 %; Mean Corpuscular HGB Conc 31.1 g/dL (31.6-35.5); Mean Corpuscular Volume 93.4 fL (83.0-100.0); Mean Platelet Volume 10.3 fL (9.4-12.4); Monocytes # 0.7 K/mcL (0.0-1.3); Monocytes % 12.1 %; Neutrophils # 3.1 K/mcL (1.6-8.9); Platelet Count 210 K/mcL (140-400); Red Blood Count 3.96 M/mcL (3.82-4.97); Red Cell Distribution Width 14.9 % (11.5-14.5); Segmented Neutrophils % 54.3 %; White Blood Count 5.7 K/mcL (4.3-11.1)
[2019-12-21 03:56] LABS: Calcium 9.5 mg/dL (8.6-10.3); Potassium 4.2 mEq/L (3.5-5.1)
[2019-12-21] MEDS: DilTIAZem 50 MG/50 ML IV.SOLN IVC SCH (04:47)
[2019-12-21] MEDS: Aspirin Enteric Coated 81 MG Tablet PO SCH (08:43)
[2019-12-21] MEDS: Metoprolol XL (24 HR) Succ 50 MG TAB.ER.24H PO SCH (08:49)
[2019-12-21] MEDS: rOPINIRole 1 MG TABLET PO SCH ×2 (08:49→21:00)
[2019-12-21] MEDS: Furosemide 20 MG TABLET PO SCH (08:49)
[2019-12-21] MEDS: Apixaban 5 MG TABLET PO SCH ×2 (08:49→21:00)
[2019-12-21] MEDS: Clotrimazole/Betameth Dip CRM 45 APPL/45 GM TUBE TP SCH ×2 (08:50→21:03)
[2019-12-21] MEDS ORDERED: Metoprolol XL (24 HR) Succ 25 MG TAB.ER.24H PO ONE (10:52)
[2019-12-21] MEDS ORDERED: Metoprolol XL (24 HR) Succ 50 MG TAB.ER.24H PO SCH (21:00)
[2019-12-22 04:53] LABS: Basophils # 0.1 K/mcL (0.0-0.2); Eosinophils # 0.3 K/mcL (0.0-0.6); Hematocrit 35.3 % (35.3-44.9); Hemoglobin 11.3 g/dL (11.5-15.4); Immature Granulocytes % 0.3 % (0-4); Lymphocytes # 1.3 K/mcL (0.6-4.6); Lymphocytes % 21.2 %; Mean Corpuscular Hemoglobin 30.1 pg (28.0-33.3); Mean Corpuscular Volume 93.9 fL (83.0-100.0); Mean Platelet Volume 10.3 fL (9.4-12.4); Monocytes # 0.8 K/mcL (0.0-1.3); Monocytes % 12.8 %; Neutrophils # 3.7 K/mcL (1.6-8.9); Platelet Count 191 K/mcL (140-400); Red Blood Count 3.76 M/mcL (3.82-4.97); Red Cell Distribution Width 14.8 % (11.5-14.5); Segmented Neutrophils % 59.7 %; White Blood Count 6.3 K/mcL (4.3-11.1)
[2019-12-22 05:16] LABS: Calcium 9.3 mg/dL (8.6-10.3); Magnesium 1.9 mg/dL (1.6-2.6); Phosphorous 3.6 mg/dL (2.7-4.5)
[2019-12-22] MEDS ORDERED: Metoprolol XL (24 HR) Succ 50 MG TAB.ER.24H PO SCH (09:00)
[2019-12-22] MEDS: Aspirin Enteric Coated 81 MG Tablet PO SCH (10:04)
[2019-12-22] MEDS: Apixaban 5 MG TABLET PO SCH (10:04)
[2019-12-22] MEDS: rOPINIRole 1 MG TABLET PO SCH (10:04)
[2019-12-22] MEDS: Furosemide 20 MG TABLET PO SCH (10:05)
[2019-12-22] MEDS: Clotrimazole/Betameth Dip CRM 45 APPL/45 GM TUBE TP SCH (10:05)
[2019-12-22 11:12] VITALS: BP 106/64
== END 2019-12-22 14:48 | disposition home or self-care (01) | DRG 291 ==
LOC: 3BNU 09:25 → EMEROOARM 09:25 → SUATTDRO 13:57 → 3BNU 15:07
PROVIDERS: ADMIT Internal Medicine; ATTEND Internal Medicine